=== PATIENT | male | born 1955 ===

== ENCOUNTER → 2016-09-09 | Outpatient (CLI) | payer OTHER ==
[~2016-09-09] MED LIST: IOHEXOL 350 MG/ML 100ML VIAL. IV ONE
[2016-09-09 09:56] LABS: GFR 76.2
--- NOTE | 2016-09-09 15:58 | RAD ---
CTA of the neck with contrast, 09/09/2016: History: Atherosclerosis Multidetector CT imaging was performed following an IV bolus injection of iodinated contrast material. Multiplanar reconstructions were produced including 3-D volume rendered reconstructions of the major arteries. There is mild calcific plaquing involving the aortic arch. There is no significant atherosclerotic narrowing at the origins of the cervicocephalic arteries from the arch. There is minimal narrowing of the left common carotid artery in the lower neck. There is only mild atherosclerotic plaquing at the left carotid bifurcation without significant narrowing at the bulb or in the proximal internal carotid artery. The left internal carotid artery in the upper neck is widely patent. There is mild narrowing of that vessel at the skull base and moderate narrowing in its cavernous segment due to calcific plaquing. The right common carotid artery is widely patent up to the level of the bifurcation. There is moderate calcific plaquing at the bifurcation producing approximately 60% diameter narrowing of the proximal right internal carotid artery. The right internal carotid artery in the upper neck is widely patent. There is mild narrowing of that vessel in its cavernous segment due to calcific plaquing. The right vertebral artery in the neck is dominant with mild calcific plaquing at its origin. It is widely patent through the basilar artery level. The left vertebral is artery is small. It appears to terminate in cerebellar branches without a definite connection to the basilar artery, which is a normal variant. IMPRESSION: 1. Moderate atherosclerotic plaquing at the right carotid bifurcation with approximately 60% diameter narrowing of the proximal right internal carotid artery. 2. Mild atherosclerotic plaquing of the left carotid bifurcation without significant luminal narrowing. 3. Calcific plaquing involving the cavernous segments of the distal internal carotid arteries with mild to moderate narrowing, more so on the left. 4. Dominant right vertebral artery. PQRS Compliance Statement: One or more of the following individualized dose reduction techniques were utilized for this examination: 1. Automated exposure control 2. Adjustment of the mA and/or kV according to patient size 3. Use of iterative reconstruction technique
--- NOTE | 2016-09-09 16:15 | RAD ---
CTA of the right upper extremity, 09/09/2016: History: Peripheral vascular disease Multidetector CT imaging was performed following an IV bolus injection of iodinated contrast material. Multiplanar reconstructions were produced including 3-D MIP images of the major arteries. The right innominate and proximal subclavian arteries show no significant stenosis. A vascular stent is present at the junction of the distal right subclavian and proximal axillary arteries. Contrast is present in the proximal aspect of the stent lumen. The lumen of the distal portion of the stent is occluded. There is reconstitution of the distal right axillary artery via collateral circulation. The collateral circulation is being provided primarily from an artery arising from the unopacified proximal lumen of the stent. The brachial artery is widely patent. The ulnar and radial arteries are patent down through the level of the wrist. IMPRESSION: Occluded stent in the right axillary artery with reconstitution distally via collateral circulation as described above. PQRS Compliance Statement: One or more of the following individualized dose reduction techniques were utilized for this examination: 1. Automated exposure control 2. Adjustment of the mA and/or kV according to patient size 3. Use of iterative reconstruction technique
== END | disposition home or self-care (01) ==
LOC: CT 12:34
PROVIDERS: ATTEND Surgery
DX: I70.218 Atherosclerosis of native arteries of extremities with intermittent claudication, other extremity (principal)
CPT/HCPCS: 36415; 70498; 73206; 82565; 84520; Q9967